=== PATIENT | female | born 1985 | race American Indian/Alaskan Native ===

== ENCOUNTER 2021-05-04 09:12 | Outpatient (CLI) | payer OTHER ==
--- NOTE | 2021-05-04 11:17 | Fluoroscopy Report ---
BARIUM SWALLOW Indication: K30 DYSPEPSIA. Technique: Single contrast barium technique utilized to evaluate the esophagus. FINDINGS: To begin the exam, swallowing was evaluated in the lateral position under direct fluorosco py. Swallowing was normal. No mucosal irregularity, mass, mass effect, or critical stenosis. Occasional tertiary contractions were sent to 5 in the mid to distal esophagus with mild delay in esophageal emptying. No hiatal herni a or reflux was witnessed during this exam. IMPRESSION: Mild esophageal dysmotility as described. Fluoroscopic time: 1.7 minutes Number of fluoroscopic images: 30 Signer Name: Jimbo Higginbotham Jr, MD Signed: 05/04/2021 11:11 AM Workstation Name: [id number]
== END 2021-05-04 09:13 | disposition home or self-care (01) ==
LOC: FLUORO 09:12
PROVIDERS: ATTEND Surgery
DX: K30 Functional dyspepsia (principal)
CPT/HCPCS: 74220